=== PATIENT | female | born 1940 | race Caucasian/White ===

== ENCOUNTER → 2018-06-27 | Outpatient (CLI) | payer MEDICARE ==
[~2018-06-27] MED LIST: ASPI81CH PO; DILT30 PO; ESTRADIOL 0.5MG PO; HYDCHL12.5 PO; HYDMOR2 PO; LEVSOD125 PO; Lovastatin20 MG PO; MULVITMIND PO
== END | disposition home or self-care (01) ==
LOC: LAB EV 20:15 → LAB SHORT 20:15
DX: N39.0 Urinary tract infection, site not specified (principal)
CPT/HCPCS: 87077; 87086; 87186

== ENCOUNTER → 2019-12-12 | Outpatient (CLI) | payer MEDICARE | END | disposition home or self-care (01) | LOC: LAB SHORT 18:56 → LAB EV 18:56 | DX: N39.0 Urinary tract infection, site not specified (principal) | CPT/HCPCS: 87077; 87086; 87186 ==

== ENCOUNTER 2020-05-22 15:46 | Inpatient (IN) | payer MEDICARE ==
[~2020-05-22] VITALS: Ht 167.6 cm; Wt 98.8 kg
[~2020-05-22 15:46] MED LIST changes: +EUTHYROX88 MCG PO; +Hair, Skin & N1 EACH PO; -LEVSOD125 PO; -MULVITMIND PO
--- NOTE | 2020-05-27 07:19 | NUR ---
Ambulatory in Day Surgery History, Chart, Medications and Allergies reviewed before start of procedure.Lungs clear T/O to Auscultation. Patient confirms NPO status and agrees with scheduled surgery. Pre-Op teaching done. Pt verbalizes understanding. Patient States Post-Procedure ride home has been arranged. Patient reports completing Chlorhexadine shower X2 prior to admission to hospital.
--- NOTE | 2020-05-27 12:12 | NUR ---
PT ARRIVED TO UNIT FROM PACU A&0X4. DENIES PAIN, SOB, N/T. STATES SLIGHT NAUSEA. SIPPING WATER WITHOUT DIFFICULTY. REQUESTED TAPIOCA PUDDING. DRESSING TO L SHOULDER CDI. IMMOBILIZER IN PLACE. ICEPACK TO L SHOULDER. CALL LIGHT IN REACH. DENIES ANY NEEDS AT THIS TIME.
[2020-05-27] MEDS ORDERED: OXYC5 PO (14:47)
[2020-05-27] MEDS ORDERED: PROM25 PO (14:48)
--- NOTE | 2020-05-27 15:11 | NUR ---
THERAPY WORKING WITH PT.
--- NOTE | 2020-05-27 17:18 | NUR ---
PT WISHES TO DC PASSED THERAPY. VOIDING. TOLERATING PO. DENIES PAIN. SPOKE TO DUY FROM DR DAVEY'S OFFICE; INSTRUCTED TO LEAVE DRESSING ON SHOULDER AND SEND PT HOME W/AQUACELL DRESSINGS. PT TO F/U ON MONDAY IN OFFICE. DRESSING TO SHOULDER CDI.
--- NOTE | 2020-05-27 17:46 | NUR ---
DISCHARGED DC'D IV, CATHETER INTACT. REVIEWED DC INSTRUCTIONS W/PT AND SPOUSE. STATED UNDERSTOOD. PROVIDED AQUACEL DRESSING FOR PT. PT LEFT UNIT W/AQUACEL DRESSINGS AND DC PAPERWORK IN HAND, ACCOMPANIED BY SPOUSE TO CAR AWAITING OUTSIDE.
--- NOTE | 2020-05-28 09:54 | NUR ---
05/28/20 0954 Carmel Ceja VERIFICATIONS: EDIT CHART.
== END 2020-05-27 17:32 | disposition home or self-care (01) | DRG 483 ==
LOC: SURS 05-27 06:11 → PRE IP 05-27 07:30 → SURS 05-27 11:46
PROVIDERS: ADMIT Orthopaedic Surgery
PROC: 0RRK00Z Replacement of Left Shoulder Joint with Reverse Ball and Socket Synthetic Substitute, Open Approach (ICD-10-PCS; principal; 2020-05-27 07:30)
DX: M19.012 Primary osteoarthritis, left shoulder (principal); I10 Essential (primary) hypertension; E66.9 Obesity, unspecified; Z68.35 Body mass index [BMI] 35.0-35.9, adult; E03.9 Hypothyroidism, unspecified; E78.00 Pure hypercholesterolemia, unspecified
CPT/HCPCS: 73030; 88300; 97110; 97116; 97162; 97166; 97530; 97535; A9270; C1713; C1776; J0171; J0461; J0696; J0735; J1100; J1885; J2250; J2405; J2704; J2710; J2795; J3010; J3370; J7120

== ENCOUNTER → 2023-01-03 | Outpatient (CLI) | payer MEDICARE ==
[~2023-01-03] MED LIST changes: +OXYC5 PO; +PROM25 PO
== END | disposition home or self-care (01) ==
LOC: LAB 18:21 → LAB SHORT 18:21
DX: N39.0 Urinary tract infection, site not specified (principal)
CPT/HCPCS: 87077; 87086; 87186

== ENCOUNTER → 2023-12-04 | Outpatient (CLI) | payer MEDICARE | END | disposition home or self-care (01) | LOC: LAB SHORT 10:14 → LAB 10:14 | DX: D22.72 Melanocytic nevi of left lower limb, including hip (principal); L57.0 Actinic keratosis; L90.5 Scar conditions and fibrosis of skin | CPT/HCPCS: 88305 ==

== ENCOUNTER → 2024-12-24 | Outpatient (CLI) | payer MEDICARE | END | disposition home or self-care (01) | LOC: LAB SHORT 13:05 → LAB 13:05 | DX: N39.0 Urinary tract infection, site not specified (principal) | CPT/HCPCS: 87077; 87086; 87186 ==